=== PATIENT | male | born 1990 | race Caucasian/White ===

== ENCOUNTER 2020-04-12 17:15 | Emergency (ER) | payer OTHER ==
[2020-04-12 18:17] VITALS: BP 126/75; PULSE 79; RESP 16; TEMP 99
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
[2020-04-12] MEDS ORDERED: CYCLOBENZAPRINE 10MG STARTER 3 TAB BTL PO STA (18:52)
== END 2020-04-12 19:10 | disposition home or self-care (01) ==
LOC: EC 17:15
DX: M79.641 Pain in right hand (principal); F17.200 Nicotine dependence, unspecified, uncomplicated; Z88.6 Allergy status to analgesic agent; V43.63XA Car passenger injured in collision with pick-up truck in traffic accident, initial encounter; Y92.410 Unspecified street and highway as the place of occurrence of the external cause; Y93.89 Activity, other specified
CPT/HCPCS: 99283

== ENCOUNTER 2024-05-15 18:02 | Emergency (ER) | payer OTHER ==
[2024-05-15 18:16] VITALS: RESP 18
--- NOTE | 2024-05-15 18:52 | ED ---
URI HPI - General Chief Complaint: Upper Respiratory Infection Stated Complaint: Fever,Body aches Time Seen by Provider: 05/15/24 18:51 Source: patient, RN notes reviewed Mode of arrival: ambulatory Limitations: no limitations - History of Present Illness Initial Comments: 34-year-old male presented the ER with a chief complaint of cough, fevers and myalgias. Patient states that been going on since , 05-11-2024. Patient reports he also hard he feels like he is going to vomit and is having stomach pain from coughing. Patient is an everyday smoker. Patient has no significant past medical history. Patient has been taking [id number] Tylenol for fevers. Last dose around noon today. Patient is allergic to NSAIDs. Patient denies any chest pain, urinary complaints, constipation or peripheral edema. Patient does report recent loose stools. No melena or hematochezia. - Related Data Previous Rx's Medication Instructions Recorded Cephalexin [Keflex] 500 mg PO Q12HR 10 Days cap 03/18/16 Benzonatate [Tessalon Perles] 100 mg PO TID PRN #15 capsule 05/15/24 Allergies Allergy/AdvReac Type Severity Reaction Status Date / Time NSAIDS (Non-Steroidal Allergy Anaphylaxis Verified 05/15/24 18:16 Anti-Inflamma Review of Systems ROS Statement: Those systems with pertinent positive or pertinent negative responses have been documented in the HPI. ROS Other: All systems not noted in ROS Statement are negative. Past Medical History Past Medical History: No Reported History History of Any Multi-Drug Resistant Organisms: None Reported Past Surgical History: Tonsillectomy Past Psychological History: No Psychological Hx Reported Smoking Status: Current every day smoker Past Alcohol Use History: Occasional Past Drug Use History: Marijuana General Exam Limitations: no limitations General appearance: alert, in no apparent distress ENT exam: Present: normal exam, normal oropharynx (Erythematous oropharynx), mucous membranes moist, TM's normal bilaterally Neck exam: Present: normal inspection. Absent: tenderness, meningismus, lymphadenopathy Respiratory exam: Present: normal lung sounds bilaterally. Absent: respiratory distress, wheezes, rales, rhonchi, stridor Cardiovascular Exam: Present: regular rate, normal rhythm, normal heart sounds. Absent: systolic murmur, diastolic murmur, rubs, gallop, clicks Extremities exam: Present: normal inspection, full ROM, normal capillary refill. Absent: tenderness, pedal edema, joint swelling, calf tenderness Neurological exam: Present: alert, oriented X3, CN II-XII intact Skin exam: Present: warm, dry, intact, normal color. Absent: rash Course Vital Signs 05/15/24 05/15/24 05/15/24 18:13 19:14 19:25 Temperature 100.6 F H 98.3 F Pulse Rate 98 87 Respiratory 18 18 18 Rate Blood Pressure 132/78 109/74 O2 Sat by Pulse 98 96 Oximetry Medical Decision Making - Medical Decision Making Was pt. sent in by a medical professional or institution (, JOSEPH, METAL FURNITURE ASSEMBLY SUPERVISOR, urgent care, hospital, or half-way...) When possible be specific @ -No Did you speak to anyone other than the patient for history (EMS, parent, family, police, friend...)? What history was obtained from this source @ -No Did you review nursing and triage notes (agree or disagree)? Why? @ -I reviewed and agree with nursing and triage notes Were old charts reviewed (outside hosp., previous admission, EMS record, old EKG, old radiological studies, urgent care reports/EKG's, half-way records)? Report findings @ -No old charts were reviewed Differential Diagnosis (chest pain, altered mental status, abdominal pain women, abdominal pain men, vaginal bleeding, weakness, fever, dyspnea, syncope, headache, dizziness, GI bleed, back pain, seizure, CVA, palpatations, mental health, musculoskeletal)? @ -COVID, RSV, influenza, viral sinusitis, pneumonia this list is not meant to be all-inclusive EKG interpreted by me (3pts min.). @ -None X-rays interpreted by me (1pt min.). @ -Chest x-ray interpreted by me negative for acute cardiopulmonary process. CT interpreted by me (1pt min.). @ -None done U/S interpreted by me (1pt. min.). @ -None done What testing was considered but not performed or refused? (CT, X-rays, U/S, labs)? Why? @ -None What meds were considered but not given or refused? Why? @ -None Did you discuss the management of the patient with other professionals (professionals i.e. , JOSEPH, METAL FURNITURE ASSEMBLY SUPERVISOR, lab, RT, psych nurse, social worker assistant, torch operator, teacher, complaint investigations officer, case reviewer)? Give summary @ -No Was smoking cessation discussed for >3mins.? @ -I discussed smoking cessation for greater than 3 minutes. The risk of smoking were discussed with the patient including but not limited to risks of cancer, stroke, coronary artery disease and COPD. Also discussed with patient were multiple methods of quitting smoking. Lastly we discussed the financial cost of smoking. Was critical care preformed (if so, how long)? @ -No Were there social determinants of health that impacted care today? How? (Homelessness, low income, unemployed, alcoholism, drug addiction, tr ansportation, low edu. Level, literacy, decrease access to med. care, residential, rehab)? @ -No Was there de-escalation of care discussed even if they declined (Discuss DNR or withdrawal of care, Hospice)? DNR status @ -No What co-morbidities impacted this encounter? (DM, HTN, Smoking, COPD, CAD, Cancer, CVA, ARF, Chemo, Hep., AIDS, mental health diagnosis, sleep apnea, morbid obesity)? @ -Smoking Was patient admitted / discharged? Hospital course, mention meds given and route, prescriptions, significant lab abnormalities, going to OR and other pertinent info. @ -Discharge. 34-year-old male presented to ER with a chief complaint of cough and fever. History and physical exam completed. Patient is febrile upon examination with a temperature of 100.6. Heart rate 98, respiratory rate 18, blood pressure 132/78, oxygen saturation 98% on room air. Patient in no signs of acute distress. Exam unremarkable. Viral swabs negative. Strep negative. Chest x-ray interpreted by me negative for acute cardiopulmonary process. Patient received p.o. Tylenol and Tessalon Perles in the ER for symptom control. Upon reevaluation, patient resting company in exam room no signs of acute dis tress. Symptoms believed to be viral in nature. Tessalon Perles prescribed. Advise close follow-up with PCP. Strict return parameters discussed. Patient discharged stable condition. Patient verbally expressed understanding agree with care plan. Case discussed with ED attending Dr. Cleary. Undiagnosed new problem with uncertain prognosis? @ -No Drug Therapy requiring intensive monitoring for toxicity (Heparin, Nitro, Insulin, Cardizem)? @ -No Were any procedures done? @ -No Diagnosis/symptom? @ -Viral illness/acute viral sinusitis Acute, or Chronic, or Acute on Chronic? @ -Acute Uncomplicated (without systemic symptoms) or Complicated (systemic symptoms)? @ -Uncomplicated Side effects of treatment? @ -No Exacerbation, Progression, or Severe Exacerbation? @ -No Poses a threat to life or bodily function? How? (Chest pain, [place], [place], pneumonia, PE, COPD, DKA, ARF, appy, cholecystitis, CVA, Diverticulitis, Homicidal, Suicidal, threat to staff... and all critical care pts) @ -No - Lab Data Lab Results 05/15/24 05/15/24 Range/Units 18:50 18:50 Influenza Type A (PCR) Not Detected (Not Detectd) Influenza Type B (PCR) Not Detected (Not Detectd) RSV (PCR) Not Detected (Not Detectd) SARS-CoV-2 (PCR) Not Detected (Not Detectd) Group A Strep (PCR) NOT DETECTED (Not Detectd) - Radiology Data Radiology results: report reviewed, image reviewed Disposition Clinical Impression: Viral illness, Acute viral sinusitis Disposition: HOME SELF-CARE Condition: Stable Instructions (If sedation given, give patient instructions): Fever in Adults (ED) Additional Instructions: To Tylenol for pain control. You can take Tessalon Perles up to 3 times a day for cough. Follow-up with PCP. Return to the ER for any new or worse concerns. Prescriptions: Benzonatate [Tessalon Perles] 100 mg PO TID PRN #15 capsule PRN Reason: Cough Is patient prescribed a controlled substance at d/c from ED?: No Referrals: None,Stated [Primary Care Provider] - 1-2 days Forms: Area PCPs Time of Disposition: 20:01
--- NOTE | 2024-05-15 19:00 | XR ---
EXAMINATION TYPE: XR chest 2V DATE OF EXAM: 05/15/2024 COMPARISON: None INDICATION: Fever cough TECHNIQUE: Frontal and lateral views of the chest are obtained. FINDINGS: The heart size is normal. The pulmonary vasculature is normal. The lungs are clear. IMPRESSION: 1. No acute pulmonary process. [facility] chin DaleyMaize, , 05/15/2024 6:58 PM
[2024-05-15] MEDS: ACETAMINOPHEN TAB 500 MG TAB PO STA (19:01)
[2024-05-15 19:25] VITALS: BP 109/74; PULSE 87; TEMP 98.3
[2024-05-15] MEDS: BENZONATATE 100 MG CAP PO STA (20:07)
== END 2024-05-15 20:11 | disposition home or self-care (01) ==
LOC: EC 18:02
DX: B97.89 Other viral agents as the cause of diseases classified elsewhere (principal); J01.90 Acute sinusitis, unspecified; F17.200 Nicotine dependence, unspecified, uncomplicated
CPT/HCPCS: 71046; 87636; 87651; 99283

== ENCOUNTER 2024-09-20 20:12 | Emergency (ER) | payer OTHER ==
[2024-09-20] MEDS: LIDOCAINE 4% PATCH TOPICAL ONE (20:33)
[2024-09-20] MEDS: DEXAMETHASONE SOD PHOSPHATE 10 MG/ML 1 ML VIAL IM STA (20:33)
[2024-09-20] MEDS: ORPHENADRINE 30 MG/ML 2 ML VIAL IM STA (20:33)
--- NOTE | 2024-09-20 20:43 | ED ---
Back Pain HPI - General Chief Complaint: Back Pain/Injury Stated Complaint: back pain Time Seen by Provider: 09/20/24 20:20 Source: patient Limitations: no limitations - History of Present Illness Initial Comments: 34-year-old male presenting with chief complaint of back pain. Patient is having lower back pain ongoing for about 3 days. Started after work, states that he lifts 40 to 50 pounds while at work. Denies any other injury or trauma. States that pain worsens with certain motions, depending on how he moves it when either shoot up his back or down his leg. No loss of bowel or bladder control or saddle paresthesia. No abdominal pain, nausea, vomiting, fever, chills, urinary symptoms. Has been taking Tylenol with little relief. - Related Data Previous Rx's Medication Instructions Recorded Cephalexin [Keflex] 500 mg PO Q12HR 10 Days cap 03/18/16 Benzonatate [Tessalon Perles] 100 mg PO TID PRN #15 capsule 05/15/24 Cyclobenzaprine [Flexeril] 10 mg PO TID PRN #15 tab 09/20/24 Lidocaine 5% Patch [Lidoderm 5% 1 patch TOPICAL DAILY PRN #30 patch 09/20/24 Patch] methylPREDNISolone [Medrol Dose 0 mg PO DIRECTED #1 packet 09/20/24 Pack] Allergies Allergy/AdvReac Type Severity Reaction Status Date / Time NSAIDS (Non-Steroidal Allergy Anaphylaxis Verified 09/20/24 20:19 Anti-Inflamma Review of Systems ROS Statement: Those systems with pertinent positive or pertinent negative responses have been documented in the HPI. ROS Other: All systems not noted in ROS Statement are negative. Past Medical History Past Medical History: No Reported History History of Any Multi-Drug Resistant Organisms: None Reported Past Surgical History: Tonsillectomy Past Psychological History: No Psychological Hx Reported Smoking Status: Current every day smoker Past Alcohol Use History: Occasional Past Drug Use History: Marijuana General Exam Limitations: no limitations General appearance: alert, in no apparent distress Head exam: Present: atraumatic, normocephalic, normal inspection Eye exam: Present: normal appearance, EOMI Neck exam: Present: normal inspection. Absent: meningismus Respiratory exam: Absent: respiratory distress Cardiovascular Exam: Present: regular rate Back exam: Present: normal inspection, tenderness Neurological exam: Present: alert, oriented X3 Psychiatric exam: Present: normal affect, normal mood Skin exam: Present: warm, dry Course Vital Signs 09/20/24 20:15 Temperature 98.7 F Pulse Rate 95 Respiratory 18 Rate Blood Pressure 136/72 O2 Sat by Pulse 97 Oximetry Medical Decision Making - Medical Decision Making Was pt. sent in by a medical professional or institution (, JOSEPH, CLINICAL PSYCHOLOGY TEACHER, urgent care, hospital, or skilled nursing...) When possible be specific @ -No Did you speak to anyone other than the patient for history (EMS, parent, family, police, friend...)? What history was obtained from this source @ -No Did you review nursing and triage notes (agree or disagree)? Why? @ -I reviewed and agree with nursing and triage notes Were old charts reviewed (outside hosp., previous admission, EMS record, old EKG, old radiological studies, urgent care reports/EKG's, skilled nursing records)? Report findings @ -No old charts were reviewed Differential Diagnosis (chest pain, altered mental status, abdominal pain women, abdominal pain men, vaginal bleeding, weakness, fever, dyspnea, syncope, headache, dizziness, GI bleed, back pain, seizure, CVA, palpatations, mental health, musculoskeletal)? @ - MDM Differential Back Pain: Strain, zoster, cauda equina syndrome, epidural abscess, vertebral osteomyelitis, discitis, fracture, subluxation, disc herniation, DJD, spinal stenosis, dissection, AAA, pancreatitis, peptic ulcer disease, pyelonephritis, kidney stone this is not meant to be an all-inclusive list. EKG interpreted by me (3pts min.). @ -As above X-rays interpreted by me (1pt min.). @ -None done CT interpreted by me (1pt min.). @ -None done U/S interpreted by me (1pt. min.). @ -None done What testing was considered but not performed or refused? (CT, X-rays, U/S, labs)? Why? @ -None What meds were considered but not given or refused? Why? @ -None Did you discuss the management of the patient with other professionals (flip medel iKeeeJOSEPH [address] CLINICAL PSYCHOLOGY TEACHER, lab, RT, psych nurse, social work case manager, manager technical, teacher, staff weapons officer, housing case manager)? Give summary @ -No Was smoking cessation discussed for >3mins.? @ -No Was critical care preformed (if so, how long)? @ -No Were there social determinants of health that impacted care today? How? (Homelessness, low income, unemployed, alcoholism, drug addiction, transportation, low edu. Level, literacy, decrease access to med. care, fpc, rehab)? @ -No Was there de-escalation of care discussed even if they declined (Discuss DNR or withdrawal of care, Hospice)? DNR status @ -No What co-morbidities impacted this encounter? (DM, HTN, Smoking, COPD, CAD, Cancer, CVA, ARF, Chemo, Hep., AIDS, mental health diagnosis, sleep apnea, morbid obesity)? @ -None Was patient admitted / discharged? Hospital course, mention meds given and route, prescriptions, significant lab abnormalities, going to OR and other pertinent info. @ -34-year-old male presenting with chief complaint of lower back pain worsening left side. No red flag symptoms. History and physical examination are conducted. Patient was treated with Norflex, Decadron, lidocaine patch. On reassessment he reports significant improvement in his symptoms. He feels ready for discharge home. Follow-up with PCP. Report back to ER with any new or worsening symptoms. Discussed return parameters and answered all questions. Patient conveyed verbal understanding and agreed to the plan. I discussed this case in detail with my attending Dr. Basurto Undiagnosed new problem with uncertain prognosis? @ -No Drug Therapy requiring intensive monitoring for toxicity (Heparin, Nitro, Insulin, Cardizem)? @ -No Were any procedures done? @ -No Diagnosis/symptom? @ -Muscle spasm Acute, or Chronic, or Acute on Chronic? @ -Acute Uncomplicated (without systemic symptoms) or Complicated (systemic symptoms)? @ -Uncomplicated Side effects of treatment? @ -No Exacerbation, Progression, or Severe Exacerbation? @ -No Poses a threat to life or bodily function? How? (Chest pain, [place], [place], pneumonia, PE, COPD, DKA, ARF, appy, cholecystitis, CVA, Diverticulitis, Homicidal, Suicidal, threat to staff... and all critical care pts) @ -Low likelihood of Disposition Clinical Impression: Muscle spasm Disposition: HOME SELF-CARE Condition: Good Instructions (If sedation given, give patient instructions): Acute Low Back Pain (ED) Additional Instructions: Follow-up with PCP. Report back to ER with any new or worsening symptoms. Take medication as prescribed. Do not take cyclobenzaprine prior to driving or operating heavy machinery. Take Tylenol as needed. Prescriptions: Cyclobenzaprine [Flexeril] 10 mg PO TID PRN #15 tab PRN Reason: spasms Lidocaine 5% Patch [Lidoderm 5% Patch] 1 patch TOPICAL DAILY PRN #30 patch PRN Reason: Pain methylPREDNISolone [Medrol Dose Pack] 0 mg PO DIRECTED #1 packet Is patient prescribed a controlled substance at d/c from ED?: No Referrals: None,Stated [Primary Care Provider] - 1-2 days Forms: Area PCPs Time of Disposition: 21:24
[2024-09-20 21:32] VITALS: BP 123/77; PULSE 63; RESP 16; TEMP 98.6
== END 2024-09-20 21:32 | disposition home or self-care (01) ==
LOC: EC 20:12
DX: M62.830 Muscle spasm of back (principal); F17.200 Nicotine dependence, unspecified, uncomplicated; Z88.6 Allergy status to analgesic agent
CPT/HCPCS: 99283; 96372 ×2; J1100; J2360